=== PATIENT | male | born 1995 | race Hispanic/Latino ===

== ENCOUNTER 2017-08-18 11:13 | Emergency (ER) | payer MEDICAID ==
[2017-08-18 11:13] VITALS: BMI 25.8
[2017-08-18 11:17] VITALS: O2SAT 100
[2017-08-18] MEDS ORDERED: Sodium Chloride 0.9% 1,000 ML IV STA (11:53)
--- NOTE | 2017-08-18 14:59 | ED PDOC ---
HPI: Abdomen Time Seen by Provider: 08/18/17 11:24 Chief Complaint (Nursing): GI Problem Chief Complaint (Provider): abdominal pain History Per: Patient History/Exam Limitations: no limitations Onset/Duration Of Symptoms: Days (1) Outside of [place] travel?: No Current Symptoms Are (Timing): Still Present Context: Other (alcohol-states he drank alot of alochol since he has been vomiting with abdominal cramping. ) Location Of Pain/Discomfort: Diffuse, Epigastric Quality Of Discomfort: Cramping Associated Symptoms: Nausea, Vomiting. denies: Diarrhea, Loss Of Appetite, Back Pain, Chest Pain, Constipation, Urinary Symptoms Past Medical History Reviewed: Historical Data, Nursing Documentation, Vital Signs Vital Signs: Last Vital Signs Temp 98 F 08/18/17 11:16 Pulse 104 H 08/18/17 11:16 Resp 16 08/18/17 11:44 BP 135/90 08/18/17 11:16 Pulse Ox 100 08/18/17 11:16 - Medical History PMH: Asthma - Family History Family History: States: Unknown Family Hx - Immunization History Hx Tetanus Toxoid Vaccination: No Hx Influenza Vaccination: No Hx Pneumococcal Vaccination: No - Home Medications Home Medications: Ambulatory Orders Medication Instructions Recorded Benzocaine/Menthol [Cepacol Sore 1 each MM Q4 PRN #20 lozenge 01/31/16 Throat Lozenge] Dicyclomine [Bentyl] 20 mg PO TID #30 tab 08/18/17 - Allergies Allergies/Adverse Reactions: Allergies Allergy/AdvReac Type Severity Reaction Status Date / Time No Known Allergies Allergy Verified 01/31/16 09:10 Review of Systems ROS Statement: Except As Marked, All Systems Reviewed And Found Negative Constitutional: Negative for: Fever, Chills Gastrointestinal: Positive for: Nausea, Vomiting, Abdominal Pain Physical Exam - Reviewed Nursing Documentation Reviewed: Yes Vital Signs Reviewed: Yes - Physical Exam Appears: Positive for: Non-toxic, No Acute Distress, Uncomfortable Skin: Positive for: Normal Color, Warm, DRY Cardiovascular/Chest: Positive for: Regular Rate, Rhythm Respiratory: Positive for: CNT, Normal Breath Sounds Gastrointestinal/Abdominal: Positive for: Normal Exam, Bowel Sounds, Soft. Negative for: Tenderness Neurologic/Psych: Positive for: Alert, Oriented - ECG O2 Sat by Pulse Oximetry: 100 - Progress ED Course And Treament: Orders Category Date Time Status Dicyclomine [Bentyl] Med 08/18/17 12:00 Discontinued 20 mg .ROUTE .STK-MED ONE Dicyclomine [Bentyl] Med 08/18/17 11:53 Discontinued 20 mg PO STAT STA Famotidine [Pepcid] Med 08/18/17 11:53 Discontinued 20 mg IVP STAT STA Ondansetron [Zofran Inj] Med 08/18/17 14:11 Discontinued 4 mg .ROUTE .STK-MED ONE Ondansetron [Zofran Inj] Med 08/18/17 11:53 Discontinued 4 mg IVP STAT STA Ondansetron [Zofran Inj] Med 08/18/17 13:59 Discontinued 4 mg IVP STAT STA Sodium Chloride 0.9% 1,000 ml Med 08/18/17 11:53 Discontinued IV 1,000 mls/hr Medical Decision Making Medical Decision Making: pt improved in ER, no longer with adb pain, advised strongly to consume plenty of fluids and f/u with pmd Disposition - Clinical Impression Clinical Impression: Abdominal pain - Patient ED Disposition Is Patient to be Admitted: No Counseled Patient/Family Regarding: Studies Performed, Diagnosis, Need For Followup, Rx Given - Disposition Disposition: Routine/Home Disposition Time: 15:01 Condition: STABLE Prescriptions: Dicyclomine [Bentyl] 20 mg PO TID #30 tab Instructions: Abdominal Pain (ED), Gas and Bloating (ED)
[2017-08-18 15:15] VITALS: BP 142/65; PULSE 92; RESP 18; TEMP 98.4
== END 2017-08-18 15:13 | disposition home or self-care (01) ==
LOC: H.ER 11:13
DX: R10.9 Unspecified abdominal pain (principal); R14.0 Abdominal distension (gaseous)
CPT/HCPCS: 96361; 96374; 96375; 96376; 99285; J2405; J7040

== ENCOUNTER 2018-12-20 01:00 | Emergency (ER) | payer MEDICAID ==
[2018-12-20 01:00] VITALS: BMI 25.8
[2018-12-20 01:07] VITALS: BP 120/78; PULSE 69; RESP 18; TEMP 98.2; O2SAT 98
--- NOTE | 2018-12-20 10:36 | CARD ---
APPROVED REPORT Date of service: 12/20/2018 EKG Measurement Heart [id number] <Conclusion> Normal sinus rhythm Normal ECG
== END 2018-12-20 02:00 | disposition left against medical advice (07) ==
LOC: H.ER 01:00
DX: Z02.89 Encounter for other administrative examinations (principal)